=== PATIENT | female | born 1975 | race Caucasian/White ===

== ENCOUNTER 2018-02-11 10:44 | Emergency (ER) | payer OTHER ==
[2018-02-11 10:53] VITALS: BP 113/77
--- NOTE | 2018-02-11 11:28 | UC ---
Moshe Walker Rebecca, scribed for [facility],Mor Thomas MD on 02/11/18 at 1117 . Complaint Female HPI - HPI Summary HPI Summary: In room: Pt is a 43 y/o F who presents to [facility] c/o increased urinary frequency and dysuria. Frequency began yesterday, urinating every 30 minutes, then this morning upon waking up at 0500 she also began experiencing dysuria. Additionally c/o R suprapubic pain since this morning, described as an ache that is unchanged by movement. PMHx UTI - last one in 2010. MD: 43 y/o with a complaint of frequency. Vital signs stable. Afebrile, 8/10 discomfort, no alcohol, former smoker. Partial hysterectomy 2010. Visit history : microscopic hematuria, otherwise noncontributory. Allergies to erythromycin and penicillins. Nurse's: pt c/o being up since 0500 today and voiding every few min with drops of urine being produced. - History Of Current Complaint Chief Complaint: UCGU Stated Complaint: UTI Time Seen by Provider: 02/11/18 11:07 Hx Obtained From: Patient Hx Last Menstrual Period: hyster Onset/Duration: Lasting Days - Yesterday, Still Present Severity Currently: Severe Pain Intensity: 8 Pain Scale Used: 0-10 Numeric Alleviating Factor(s): Nothing Related Hx: Similar Episode/Dx as: - UTI (last in 2010) - Allergies/Home Medications Allergies/Adverse Reactions: Allergies Allergy/AdvReac Type Severity Reaction Status Date / Time erythromycin base Allergy Abdominal Verified 02/11/18 10:54 [From Erythrocin] Pain Penicillins Allergy Hives Verified 02/11/18 10:54 Home Medications: Home Medications Echinacea 380 mg PO 02/11/18 [History] Multivitamin [Multivitamins] 1 cap PO 02/11/18 [History] PMH/Surg Hx/FS Hx/Imm Hx - Additional Past Medical History Additional PMH: NEGATIVE PMHx: DM, HTN, asthma GI/ History: Other Other GI/ History: UTI Other History Of: Negative For: Anticoagulant Therapy - Surgical History Surgical History: Yes Surgery Procedure, Year, and Place: rhinoplasty 11/11. partial hyster (uterus out) 07/28/11 - Family History Known Family History: Positive: Diabetes - Social History Alcohol Use: None Substance Use Type: None Smoking Status (MU): Former Smoker When Did the Patient Quit Smoking/Using Tobacco: almost a year Review of Systems Constitutional: Negative Skin: Negative Eyes: Negative ENT: Negative Respiratory: Negative Cardiovascular: Negative Gastrointestinal: Abdominal Pain - R suprapubic pain Genitourinary: Dysuria, Frequency Motor: Negative Neurovascular: Negative Musculoskeletal: Negative Neurological: Negative Psychological: Negative All Other Systems Reviewed And Are Negative: Yes - Comments Additional Review of Systems Comments: POSITIVE: Urinary frequency, dysuria, R flank pain Physical Exam - Summary Physical Exam Summary: Appearance: The patient is well-appearing, is in no pain distress, and is well- nourished. Eyes: Conjunctiva are clear. ENT: The hearing is grossly normal, the pharynx is normal, and the TMs are normal. There is no muffled or hoarse voice. Neck: The neck is supple and there is no lymphadenopathy. Respiratory: The chest is nontender. The lungs are clear, there are normal breath sounds, and there is no respiratory distress. Cardiovascular: Heart is regular rate and rhythm. There is no murmur. Abdomen: The abdomen is soft. There is no organomegaly. Negative CVA tenderness. Slight superpubic tenderness to palpation. Bowel sounds: present Musculoskeletal: Strength is intact. The patient moves all extremities. Neurological: The patient is alert. Psychological: The patient displays age appropriate behavior Skin: Negative for rashes. Triage Information Reviewed: Yes Vital Signs: Initial Vital Signs Temp 98.1 F 02/11/18 10:49 Pulse 91 02/11/18 10:49 Resp 18 02/11/18 10:49 BP 113/77 02/11/18 10:49 Pulse Ox 96 02/11/18 10:49 Vital Signs Reviewed: Yes Complaint Female Dx - Course Course Of Treatment: Healthy 43 y/o F with frequency and UA consistent with UTI. Dx is cystitis. Medications have been included in the original chart and reviewed. Allergies noted. Normal BP reading and no follow-up instructions required. - Differential Dx/Diagnosis Differential Diagnosis/HQI/PQRI: Urinary Tract Infection, Other - Pyelonephritis Provider Diagnoses: Cystitis Discharge - Sign-Out/Discharge Documenting (check all that apply): Discharge - Discharge - Discharge Plan Condition: Stable Disposition: HOME Prescriptions: Phenazopyridine TAB* [Pyridium TAB*] 200 mdi PO TID #6 tab MDD 3 Sulfamethox/Trimethoprim DS* [Bactrim DS 800/160 TAB*] 1 tab PO BID #10 tab MDD 2 Patient Education Materials: Phenazopyridine (By mouth), Urinary Tract Infection in Women (ED) Referrals: Chris Humphries MD [Primary Care Provider] - Additional Instructions: WE DISCUSSED: 1. You have a bladder infection. 2. Watch for any temperature or new back pain that would suggest a kidney infection. 3. Antibiotic:twice a day for five days. 4. Pyridium: 3 times a day, as needed, for discomfort. 5. Recheck in 2 days if you are not improving; sooner for new pain or temperature. - Billing Disposition and Condition Condition: STABLE Disposition: HOME The documentation as recorded by the Moshe block Rebecca accurately reflects the service I personally performed and the decisions made by me, Mor Escamilla MD.
--- NOTE | 2018-02-13 07:36 | UC ---
- Progress Note Progress Note: PT with prelim + e coli on bactrim await sensitivity Ljj 02/13/2018 Discharge - Sign-Out/Discharge Documenting (check all that apply): Discharge - Discharge Plan Condition: Stable Disposition: HOME Prescriptions: Phenazopyridine TAB* [Pyridium TAB*] 200 mdi PO TID #6 tab MDD 3 Sulfamethox/Trimethoprim DS* [Bactrim DS 800/160 TAB*] 1 tab PO BID #10 tab MDD 2 Patient Education Materials: Phenazopyridine (By mouth), Urinary Tract Infection in Women (ED) Referrals: Chris Humphries MD [Primary Care Provider] - Additional Instructions: WE DISCUSSED: 1. You have a bladder infection. 2. Watch for any temperature or new back pain that would suggest a kidney infection. 3. Antibiotic:twice a day for five days. 4. Pyridium: 3 times a day, as needed, for discomfort. 5. Recheck in 2 days if you are not improving; sooner for new pain or temperature. - Billing Disposition and Condition Condition: STABLE Disposition: HOME
== END 2018-02-11 11:31 | disposition home or self-care (01) ==
LOC: UCEAST 10:44
DX: N30.90 Cystitis, unspecified without hematuria (principal); B96.20 Unspecified Escherichia coli [E. coli] as the cause of diseases classified elsewhere; Z87.440 Personal history of urinary (tract) infections; Z88.1 Allergy status to other antibiotic agents; Z88.0 Allergy status to penicillin; Z87.891 Personal history of nicotine dependence
CPT/HCPCS: 81003; 87077; 87086; 87186; 99212; G0463

== ENCOUNTER 2019-03-25 21:44 | Emergency (ER) | payer OTHER ==
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
[2019-03-25] MEDS ORDERED: Morphine INJ* 10 MG/ML 1 ML CARPUJECT IV ONE (22:13)
[2019-03-25] MEDS ORDERED: Metoclopramide IV* 5 MG/ML 2 ML VIAL IV ONE (22:13)
[2019-03-25] MEDS ORDERED: NS 0.9% 1000 ML** 1,000 ML IV ONE (22:13)
[2019-03-25] MEDS ORDERED: Morphine 4 MG/ML VIAL (1 ml) 4 MG/ML VIAL IV ONE (22:21)
[2019-03-25 22:44] LABS: ABS Lymphocytes 1.7 10^3/ul (1.0-4.8); ABS Monocytes 0.7 10^3/ul (0-0.8); ABS Neutrophils 7.1 10^3/ul (1.5-7.7); Eosinophil % 0.2 %; Hematocrit 42 % (35-47); Hemoglobin 14.2 g/dL (12.0-16.0); Lymphocyte % 17.6 %; Mean Corpuscular HGB Conc 34 g/dL (31-36); Mean Corpuscular Hemoglobin 29 pg (27-31); Mean Corpuscular Volume 87 fL (80-97); Mean Platelet Volume 8.1 fL (7.4-10.4); Platelet Count 160 10^3/uL (150-450); Red Blood Count 4.88 10^6 /uL (3.70-4.87); Red Cell Distribution Width 14 % (10.5-15); White Blood Count 9.6 10^3/uL (3.5-10.8)
[2019-03-25 22:50] LABS: INR 1.05 (0.82-1.09)
[2019-03-25 23:02] LABS: ALT 34 U/L (7-52); AST 38 U/L (13-39); Albumin 4.1 g/dL (3.2-5.2); Albumin/Globulin Ratio 1.9 (1-3); Alkaline Phosphatase 42 U/L (34-104); Amylase 36 U/L (29-103); Anion Gap 6 mmol/L (2-11); Blood Urea Nitrogen 15 mg/dL (6-24); CO2 Carbon Dioxide 26 mmol/L (22-32); Calcium 9.2 mg/dL (8.6-10.3); Chloride 107 mmol/L (101-111); Creatine Kinase 132 U/L (10-223); EGFR African American 73.6 (>60); EGFR Non-African American 60.8 (>60); Globulin 2.2 g/dL (2-4); Glucose 136 mg/dL (70-100); Potassium 3.7 mmol/L (3.5-5.0); Sodium 139 mmol/L (135-145); Total Protein 6.3 g/dL (6.4-8.9)
[2019-03-25 23:09] LABS: HCG Pregnancy < 0.60 mIU/mL
[2019-03-25] MEDS ORDERED: Iohexol 300* (CONTRAST) 10 ML SDV IV ONE (23:13)
[2019-03-26] MEDS ORDERED: Morphine 4 MG/ML VIAL (1 ml) 4 MG/ML VIAL IV ONE (01:17)
[2019-03-26 02:39] VITALS: BP 109/65
== END 2019-03-26 02:39 | disposition short-term general hospital (02) ==
LOC: ED 21:44
DX: S32.039A Unspecified fracture of third lumbar vertebra, initial encounter for closed fracture (principal); V40.5XXA Car driver injured in collision with pedestrian or animal in traffic accident, initial encounter; Y92.9 Unspecified place or not applicable; Z88.0 Allergy status to penicillin; Z87.891 Personal history of nicotine dependence; R00.1 Bradycardia, unspecified
CPT/HCPCS: 36415; 70450; 70486; 71260; 72125; 72128; 72131; 74177; 80053; 82150; 82550; 83605; 84484; 84702; 85025; 85610; 93005; 96361; 96374; 96375; 96376; 99285; J2270; J2765; Q9967

== ENCOUNTER 2020-10-23 18:39 | Inpatient (IN) ==
[2020-10-23 20:15] LABS: ABS Eosinophils 0.1 10^3/ul (0-0.6); ABS Lymphocytes 1.9 10^3/ul (1.0-4.8); ABS Monocytes 0.6 10^3/ul (0-0.8); ABS Neutrophils 3.3 10^3/ul (1.5-7.7); Eosinophil % 1.1 %; Hematocrit 41 % (35-47); Hemoglobin 14.1 g/dL (12.0-16.0); Lymphocyte % 32.5 %; Mean Corpuscular HGB Conc 35 g/dL (31-36); Mean Corpuscular Hemoglobin 30 pg (27-31); Mean Corpuscular Volume 87 fL (80-97); Mean Platelet Volume 8.3 fL (7.4-10.4); Platelet Count 150 10^3/uL (150-450); Red Blood Count 4.66 10^6 /uL (3.70-4.87); Red Cell Distribution Width 14 % (10-15); White Blood Count 5.9 10^3/uL (3.5-10.8)
[2020-10-23 20:22] LABS: Urine Appearance Cloudy; Urine Bilirubin Negative (Negative); Urine Blood Negative (Negative); Urine Color Amber; Urine Glucose Negative (Negative); Urine Ketones Trace (Negative); Urine Nitrite Negative (Negative); Urine Protein 2+(100 mg/dL) (Negative); Urine Urobilinogen Negative (Negative)
[2020-10-23 20:24] LABS: Urine Benzodiazepine Screen None Detected (None Detect); Urine Cannabinoids Screen Presumptive Positive (None Detect); Urine Opiates Screen None Detected (None Detect)
[2020-10-23 20:26] LABS: ALT 14 U/L (7-52); AST 23 U/L (13-39); Albumin 4.5 g/dL (3.2-5.2); Alkaline Phosphatase 39 U/L (34-104); Anion Gap 8 mmol/L (2-11); BUN/Creatinine Ratio 23.7 (8-20); Blood Urea Nitrogen 18 mg/dL (6-24); CO2 Carbon Dioxide 24 mmol/L (22-32); Calcium 9.6 mg/dL (8.6-10.3); Chloride 108 mmol/L (101-111); EGFR African American 100.5 (>60); EGFR Non-African American 83.1 (>60); Globulin 2.3 g/dL (2-4); Glucose 101 mg/dL (70-100); Potassium 3.9 mmol/L (3.5-5.0); Sodium 140 mmol/L (135-145); Total Protein 6.8 g/dL (6.4-8.9)
[2020-10-23 20:27] LABS: Urine Bacteria Absent (Absent); Urine Red Blood Cell Absent (Absent); Urine Squamous Epithelial Cell Present (Absent); Urine White Blood Cell Absent (Absent)
[2020-10-23 20:29] LABS: Acetaminophen < 15 mcg/mL; Alcohol, S < 10 mg/dL (<10); Salicylate < 2.50 mg/dL (<30)
[2020-10-23 20:31] LABS: HCG Pregnancy < 0.60 mIU/mL
[2020-10-23 20:44] LABS: TSH Ultra Thyroid Stim Horm 0.74 mcIU/mL (0.34-5.60)
[2020-10-23 21:03] LABS: HIV 4th Generation Nonreactive (Nonreactive)
[2020-10-24] MEDS ORDERED: Al Hydrox/Mg Hydrox/Simet LIQ 30 ML UDC PO PRN (01:57)
[2020-10-24] MEDS: Vitamin THERAPEUTIC TAB PO SCH (12:57)
[2020-10-24] MEDS: DULoxetine DR 20 mg CAP PO SCH (12:57)
[2020-10-25] MEDS: Vitamin THERAPEUTIC TAB PO SCH (09:07)
[2020-10-25] MEDS: DULoxetine DR 20 mg CAP PO SCH (09:07)
[2020-10-25] MEDS: diPHENhydraMINE 25 mg TAB PO SCH ×2 (15:26→20:14)
[2020-10-26] MEDS: diPHENhydraMINE 25 mg TAB PO SCH ×2 (09:39→20:26)
[2020-10-26] MEDS: Vitamin THERAPEUTIC TAB PO SCH (09:39)
[2020-10-26] MEDS: DULoxetine DR 30 mg CAP PO SCH (09:39)
[2020-10-27] MEDS: DULoxetine DR 30 mg CAP PO SCH (08:19)
[2020-10-27] MEDS: Vitamin THERAPEUTIC TAB PO SCH (08:20)
[2020-10-27 08:30] LABS: HDL Cholesterol 40.4 mg/dL
[2020-10-27] MEDS ORDERED: diPHENhydraMINE 25 mg TAB PO PRN (09:00)
[2020-10-28] MEDS: DULoxetine DR 30 mg CAP PO SCH (08:21)
[2020-10-28] MEDS: Vitamin THERAPEUTIC TAB PO SCH (08:21)
[2020-10-28] MEDS ORDERED: methylPREDNISolone 125 mg 2 ML VIAL IV ONE (14:28)
[2020-10-28] MEDS ORDERED: Magnesium Sulfate 2 gm BAG 2 GM/50 ML BAG IVPB ONE (14:28)
[2020-10-28] MEDS ORDERED: diPHENhydraMINE IV 50 MG/ML 1 ml VIAL (BENADRYL) IV ONE (14:29)
[2020-10-28] MEDS ORDERED: Metoclopramide 5 MG/ML VIAL (10 mg) IV ONE (14:29)
[2020-10-29] MEDS: DULoxetine DR 30 mg CAP PO SCH (08:17)
[2020-10-29] MEDS: Vitamin THERAPEUTIC TAB PO SCH (08:17)
[2020-10-29 08:59] VITALS: BP 133/90
== END 2020-10-29 16:00 | disposition home or self-care (01) | DRG 754 ==
LOC: ED 18:39 → BSU 21:46
PROVIDERS: ADMIT Psychiatry & Neurology Psychiatry; ATTEND Psychiatry & Neurology Psychiatry